=== PATIENT | male | born 1955 | race Caucasian/White ===

== ENCOUNTER 2019-03-07 08:44 | Day surgery (SDC) | payer BC | END 2019-03-07 23:06 | disposition home or self-care (01) | LOC: MOI RAD 08:44 | DX: M66.88 Spontaneous rupture of other tendons, other sites (principal); M16.12 Unilateral primary osteoarthritis, left hip; M94.252 Chondromalacia, left hip; Z79.899 Other long term (current) drug therapy | CPT/HCPCS: 20610; 73722; 77002; A9577; Q9967 ==

== ENCOUNTER → 2019-06-01 | Outpatient (CLI) | payer BC | END | disposition home or self-care (01) | LOC: LAB SHORT 16:45 → LAB 16:45 | DX: D51.8 Other vitamin B12 deficiency anemias (principal) | CPT/HCPCS: 82607; 82746 ==